=== PATIENT | male | born 1990 | race Hispanic/Latino ===

== ENCOUNTER 2024-04-06 15:34 | Emergency (ER) | payer BC ==
[~2024-04-06] VITALS: Ht 175.3 cm; Wt 172.4 kg
[2024-04-06 15:39] VITALS: BP 128/65; PULSE 78; RESP 20; TEMP 97.9; O2SAT 96
--- NOTE | 2024-04-06 15:39 | ERN ---
ED Note History of Present Illness Stated Complaint: RT EAR CLOGGED Chief Complaint: Earache Time Seen by MD: 15:36 Dictation: PATIENT IS A 33-YEAR-OLD MALE COMING IN TODAY WITH RIGHT EAR PAIN DECREASED HEARING FOR THREE WEEKS. NO FEVER NO CHILLS NO NAUSEA VOMITING HEARING NO HEADACHE NO PRIMARY CARE DOCTOR Allergies: Coded Allergies: No Known Drug Allergies (Unverified Allergy, Unknown, 04/06/24) Past Medical History Past Medical History: No Pertinent History Surgical History: Other Surgical History Other: ARM RN Note Reviewed/Agreed w/PFSH: Yes Review of System Dictation CONSTITUTIONAL: NEGATIVE EXCEPT FOR HPI HEAD/FACE: NEGATIVE EXCEPT FOR HPI EENT: NEGATIVE EXCEPT FOR HPI DECREASED HEARING WITH A YOUR PAIN RIGHT RESPIRATORY: NEGATIVE EXCEPT FOR HPI GASTROINTESTINAL/ABDOMINAL: NEGATIVE EXCEPT FOR HPI GENITOURINARY: NEGATIVE EXCEPT FOR HPI MUSCULOSKELETAL: NEGATIVE EXCEPT FOR HPI INTEGUMENTARY: NEGATIVE EXCEPT FOR HPI NEUROLOGICAL/PSYCH: NEGATIVE EXCEPT FOR HPI HEMATOLOGIC/LYMPHATIC: NEGATIVE EXCEPT FOR HPI ALL SYSTEMS NEGATIVE, EXCEPT NOTED ABOVE. 13 POINT REVIEW OF SYSTEMS ASSESSED AND ALL NEGATIVE EXCEPT FOR ABOVE. Initial Vital Sign VS Vital Signs Date Time Temp Pulse Resp B/P (MAP) Pulse Ox O2 Delivery O2 Flow Rate FiO2 04/06/24 15:36 98.8 85 16 161/102 97 Room Air 0 04/06/24 15:39 21 Physical Exam Dictation VITAL SIGNS REVIEWED GENERAL APPEARANCE: ALERT, ORIENTED X 3, NO ACUTE DISTRESS, WELL DEVELOPED, NOURISHED. HEAD AND FACE: NON-TRAUMATIC. EYES: PERRL, PINK CONJUNCTIVAS, EYELID NO TRAUMA, ANTERIOR CHAMBER WITH ARCUS SENILIS. EARS: PINNAS INTACT AND NO SIGNS OF TRAUMA OR ERYTHEMA RIGHT EAR CANAL SWOLLEN AND TENDER ERYTHEMATOUS. NO MASTOID PAIN NOSE: NO DISCHARGE, NO BLEEDING. OROPHARYNX: MOUTH NORMAL, TONGUE PINK, PHARYNX CLEAR,NO ERYTHEMA, TONSILS NO EXUDATES, NO ABSCESSES NOTED, MUCOUS MEMBRANE MOIST NECK: SUPPLE, NON-TENDER, NO THYROMEGALY, NO MASSES, NO JVD, NO BRUITS BREAST:DEFERRED CHEST:NO TENDERNESS, NO CREPITUS, NO PARADOXICAL MOVEMENT, NO RETRACTIONS LUNGS:CLEAR, WELL-VENTILATED, SYMMETRIC, NO RALES, NO WHEEZING, NO RHONCHI, NO STRIDOR, GOOD BREATH SOUNDS BILATERALLY HEART: REGULAR RATE, REGULAR RHYTHM, NO MURMUR, NO GALLOPS VASCULAR: NO PERIPHERAL EDEMA, ABDOMEN: SOFT, POSITIVE BOWEL SOUNDS, NONDISTENDED, NO GUARDING, NONTENDER, NO REBOUND, NO MASSES NO HEPATOMEGALY, NO SPLENOMEGALY, NO BATES'S SIGN, NO HERNIAS. RECTAL: DEFERRED GENITAL: DEFERRED NEUROLOGICAL: NORMAL SPEECH, MOTOR FUNCTION INTACT, SENSORY FUNCTION INTACT MUSCULOSKELETAL: NECK NONTENDER, FULL RANGE OF MOTION, BACK NONTENDER, FULL RANGE OF MOTION, EXTREMITIES: NONTENDER, FULL RANGE OF MOTION SKIN: COLOR PINK, DRY, NO TURGOR, NO RASH, NO LACERATIONS, NO ABRASIONS, NO CONTUSIONS. LYMPHATIC: DEFERRED Results (Laboratory/Radiology) Labs Reviewed?: Yes ED Course ED Course Vital Signs Date Time Temp Pulse Resp B/P (MAP) Pulse Ox O2 Delivery O2 Flow Rate FiO2 04/06/24 15:39 97.9 78 20 128/65 96 Room Air* 0 21 04/06/24 15:36 98.8 85 16 161/102 97 Room Air 0 Medical Decision Making MDM MEDICAL DISCHARGE MAKING BASED ON BASIC EXAMINATION AND WE WILL BE TREATING EMPIRICALLY FOR RIGHT OTITIS EXTERNA HE WILL BE PRESCRIBED OFLOXACIN EAR DROPS GIVEN A LIST OF THE LOCAL DOCTORS TO FOLLOW UP WITH NEXT WEEK DX & DISP Disposition: Discharge Departure Impression: Primary Impression: Right otitis externa Condition: Stable Scripts Ofloxacin (Ofloxacin) 0.3 % Drops 5 DROP OTIC QID for 5 Days, #5 ML 0 Refills FIVE DROPS TO RIGHT EAR WITH COTTON4 TIMES A DAY FOR SEVEN DAYS. Prov: JACKIE CASTAÑEDA RECORDS CUSTODIAN 04/06/24 Additional Instructions: FOLLOW-UP WITH PRIMARY CARE PROVIDER IN 1 TO 2 DAYS. TAKE MEDICATIONS DIRECTED HERE IN THE EMERGENCY ROOM. OKAY TO CONTINUE HOME MEDICATIONS UNLESS OTHERWISE DISCUSSED DURING YOUR VISIT IN THE EMERGENCY ROOM TODAY. RETURN TO YOUR NEAREST EMERGENCY ROOM IF SYMPTOMS WORSEN OR IF THERE IS NO IMPROVEMENT. CALL 911 IF YOU NEED IMMEDIATE ASSISTANCE. TAKE TYLENOL OR MOTRIN [id number] NEEDED AND IF NO CONTRAINDICATIONS ARE PRESENT. INCREASE ORAL HYDRATION. A WOUND CULTURE OR URINE CULTURE WAS ORDERED HERE IN THE EMERGENCY ROOM DEPARTMENT PLEASE FOLLOW-UP WITH PRIMARY CARE PROVIDER AND ADVISE THEM TO GET REPEAT PORTS FROM OUR FACILITY. IF YOU HAD ANY SEBASTIAN WRAP/SPLINTS THAT WERE APPLIED HERE, PLEASE DO NOT REMOVE THEM UNTIL YOU SEE YOUR PRIMARY CARE OR SPECIALTY. USE EAR DROPS DIRECTED4 TIMES A DAY WITH COTTON FOR THE NEXT SEVEN DAYS. SEE YOUR PRIMARY CARE DOCTOR FOR FOLLOW UP IN 1-2 DAYS. Time of Disposition: 16:04 I have reviewed the case, and I agree with, Diagnosis and Plan JACKIE CASTAÑEDA NP Apr 06, 2024 15:39
[2024-04-06] MEDS ORDERED: OFLO5DRO21 OTIC (16:06)
== END 2024-04-06 16:14 | disposition home or self-care (01) ==
LOC: EDH 15:34
DX: H60.91 Unspecified otitis externa, right ear (principal); Z98.890 Other specified postprocedural states
CPT/HCPCS: 99283